=== PATIENT | female | born 1950 | race Caucasian/White ===

== ENCOUNTER 2022-04-25 13:52 | Emergency (ER) | payer MEDICARE ==
[~2022-04-25] VITALS: Ht 165.1 cm; Wt 68.0 kg
[2022-04-25] MEDS ORDERED: AMOX/K CLAV875 M1 PO (15:03)
[2022-04-25 15:35] VITALS: BP 134/73
== END 2022-04-25 15:59 | disposition home or self-care (01) ==
LOC: WW 13:52 → ED 13:52 → WW 15:00 → ED 15:00 → WW 15:59
DX: S61.451A Open bite of right hand, initial encounter (principal); S61.051A Open bite of right thumb without damage to nail, initial encounter; S50.372A Other superficial bite of left elbow, initial encounter; L08.9 Local infection of the skin and subcutaneous tissue, unspecified; W55.01XA Bitten by cat, initial encounter; Y93.K9 Activity, other involving animal care; Y92.009 Unspecified place in unspecified non-institutional (private) residence as the place of occurrence of the external cause; Z79.02 Long term (current) use of antithrombotics/antiplatelets; Z86.73 Personal history of transient ischemic attack (TIA), and cerebral infarction without residual deficits

== ENCOUNTER → 2022-09-30 | Emergency (ER) | payer MEDICARE ==
[~2022-09-30] VITALS: Ht 165.1 cm; Wt 72.0 kg
[~2022-09-30] MED LIST: AMOX/K CLAV875 M1 PO
[2022-09-30 17:53] VITALS: BP 155/107
== END | disposition home or self-care (01) ==
LOC: ED 13:18
PROC: 09J Ear, Nose, Sinus, Inspection (ICD-10-PCS; principal; 2022-09-30)
DX: T16.2XXA Foreign body in left ear, initial encounter (principal); X58.XXXA Exposure to other specified factors, initial encounter; Z86.73 Personal history of transient ischemic attack (TIA), and cerebral infarction without residual deficits

== ENCOUNTER 2023-02-05 11:03 | Emergency (ER) | payer MEDICARE ==
[2023-02-05] VITALS (8 sets, daily range): BP systolic 120–146; BP diastolic 67–91
[~2023-02-05] VITALS: Ht 165.1 cm; Wt 72.5 kg
[2023-02-05] MEDS ORDERED: ATORVASTATIN CA10 MG PO (11:22)
[2023-02-05] MEDS ORDERED: COZAAR50 MG PO (11:22)
[2023-02-05] MEDS ORDERED: BAYER ASPIRIN E81 MG PO (11:23)
[2023-02-05] MEDS ORDERED: KLOR-CON M2020 MEQ PO (11:25)
[2023-02-05] MEDS ORDERED: MAGNESIUM OXID400 M1 (11:25)
[2023-02-05] MEDS ORDERED: METHOCARBAMOL500 MG PO (13:42)
[2023-02-05] MEDS ORDERED: NAPROXEN500 MG PO (13:42)
[2023-02-05] MEDS ORDERED: PREDNISONE10 MG PO (13:42)
== END 2023-02-05 14:08 | disposition home or self-care (01) ==
LOC: ED 11:03
DX: M51.17 Intervertebral disc disorders with radiculopathy, lumbosacral region (principal); Z86.73 Personal history of transient ischemic attack (TIA), and cerebral infarction without residual deficits